=== PATIENT | male | born 2000 | race Hispanic/Latino ===

== ENCOUNTER 2022-12-03 15:30 | Emergency (ER) | payer OTHER ==
[~2022-12-03] VITALS: Ht 175.3 cm; Wt 63.5 kg
[2022-12-03 15:40] VITALS: BP 112/66; PULSE 97; RESP 18
[2022-12-03 18:33] LABS: BASOPHILS % (AUTO) 0.5 % (0.0-5.0); EOSINOPHILS % (AUTO) 1.6 % (0.0-8.0); HEMATOCRIT 43.6 % (42-54); LYMPHOCYTES % (AUTO) 21.8 % (21.0-51.0); MEAN CORPUSCULAR HEMOGLOBIN 30.9 pg (27.0-33.0); MEAN CORPUSCULAR HGB CONC 34.2 g/dL (32.0-36.0); MEAN CORPUSCULAR VOLUME 90.5 fL (79-99); MONOCYTES % (AUTO) 8.5 % (3.0-13.0); NEUTROPHILS % (AUTO) 67.3 % (40.0-77.0); PLATELET COUNT (AUTO) 285 K/uL (130-400); RED BLOOD CELL COUNT(AUTO) 4.82 MIL/uL (4.50-6.20); RED CELL DISTRIBUTION WIDTH 11.9 % (11.0-15.5); WHITE BLOOD COUNT (AUTO) 9.3 K/uL (4.8-10.8)
[2022-12-03] MEDS ORDERED: CEPH500B PO (18:42)
[2022-12-03] MEDS ORDERED: ACET-2079 PO (18:42)
[2022-12-03 18:45] LABS: POTASSIUM 4.2 mmol/L (3.5-5.1)
[2022-12-03 18:50] LABS: ALBUMIN 3.6 g/dL (3.5-5.0); TOTAL PROTEIN, SERUM 7.6 g/dL (6.0-8.3)
[2022-12-03] MEDS ORDERED: HYDROCODONE/ACETAMINOPHEN 5/325 MG TAB PO ONE (19:00)
== END 2022-12-03 18:54 | disposition home or self-care (01) ==
LOC: EDH 15:30
DX: T25.011A Burn of unspecified degree of right ankle, initial encounter (principal); L03.119 Cellulitis of unspecified part of limb; X11.8XXA Contact with other hot tap-water, initial encounter; Y93.89 Activity, other specified; Y92.89 Other specified places as the place of occurrence of the external cause; Y99.8 Other external cause status
CPT/HCPCS: 36415; 80053; 83605; 85025